=== PATIENT | female | born 1940 | race Caucasian/White ===

== ENCOUNTER 2019-08-18 19:08 | Emergency (ER) | payer MEDICARE ==
[~2019-08-18] VITALS: Ht 162.6 cm; Wt 61.2 kg
[2019-08-18] MEDS ORDERED: ESTROGEN (19:30)
[2019-08-18] MEDS ORDERED: PROTONIX40 M1 PO (19:31)
[2019-08-18] MEDS ORDERED: BENAZEPRIL HCL20 MG PO (19:32)
[2019-08-18] MEDS ORDERED: NORVASC 2.5 MG2.5 M1 (19:32)
[2019-08-18 21:03] LABS: ABSOLUTE EOSINOPHILS 0.1 thou/uL (0.0-0.7); ABSOLUTE LYMPHOCYTES 1.8 thou/uL (0.8-5.3); ABSOLUTE MONOCYTES 0.4 thou/uL (0.0-1.2); ABSOLUTE NEUTROPHILS 7.6 thou/uL (1.6-8.1); BASOPHILS 0.3 %; EOSINOPHILS 1.5 %; HEMATOCRIT 42.9 % (37.0-47.0); HEMOGLOBIN 14.6 gm/dL (12.0-15.0); MCH 29.4 pg (26.0-34.0); MCHC 34.1 g/dL (28.0-37.0); MCV 86.2 fL (80.0-100.0); MONOCYTES 4.4 %; MPV 7.3 fl. (7.2-11.1); NUCLEATED RBCS 0 /100WBC; PLATELET COUNT* 225 thou/uL (150-400); POLYS 75.8 %; RBC 4.97 mil/uL (4.20-5.00); RDW-CV 14.4 % (10.5-14.5); WBC 10.1 thou/uL (4.0-11.0)
[2019-08-18 21:14] LABS: CREATININE 0.7 mg/dL (0.6-1.3); POTASSIUM 3.9 mmol/L (3.5-5.1)
[2019-08-18 21:19] LABS: ALBUMIN 3.8 g/dL (3.4-5.0); TOTAL BILIRUBIN 0.4 mg/dL (<0.1-1.0)
[2019-08-18] MEDS ORDERED: TORADOL 10 MG T10 MG PO (21:32)
[2019-08-18] MEDS ORDERED: HYDROCODON-ACE1 EAC7 PO (21:32)
[2019-08-18 22:39] VITALS: BP 155/89
== END 2019-08-18 22:39 | disposition home or self-care (01) ==
LOC: M.ERS 19:08
PROVIDERS: Personal Emergency Response Attendant
DX: T78.49XA Other allergy, initial encounter (principal); T80.89XA Other complications following infusion, transfusion and therapeutic injection, initial encounter; I10 Essential (primary) hypertension; Z88.5 Allergy status to narcotic agent; Z91.041 Radiographic dye allergy status; Z88.0 Allergy status to penicillin; Z90.49 Acquired absence of other specified parts of digestive tract; Z90.710 Acquired absence of both cervix and uterus; X58.XXXA Exposure to other specified factors, initial encounter; Y84.9 Medical procedure, unspecified as the cause of abnormal reaction of the patient, or of later complication, without mention of misadventure at the time of the procedure; Y92.89 Other specified places as the place of occurrence of the external cause

== ENCOUNTER 2021-03-03 20:33 | Emergency (ER) | payer MEDICARE ==
[~2021-03-03] VITALS: Ht 162.6 cm; Wt 77.1 kg
[~2021-03-03 20:33] MED LIST: BENAZEPRIL HCL20 MG PO; ESTROGEN; HYDROCODON-ACE1 EAC7 PO; NORVASC 2.5 MG2.5 M1; PROTONIX40 M1 PO; TORADOL 10 MG T10 MG PO
[2021-03-03 21:31] LABS: ABSOLUTE EOSINOPHILS 0.2 thou/uL (0.0-0.7); ABSOLUTE LYMPHOCYTES 1.9 thou/uL (0.8-5.3); ABSOLUTE MONOCYTES 0.5 thou/uL (0.0-1.2); ABSOLUTE NEUTROPHILS 7.9 thou/uL (1.6-8.1); BASOPHILS 0.3 %; MCH 30.2 pg (26.0-34.0); MCHC 34.1 g/dL (28.0-37.0); MCV 88.7 fL (80.0-100.0); MONOCYTES 4.9 %; MPV 7.5 fl. (7.2-11.1); NUCLEATED RBCS 0 /100WBC; PLATELET COUNT* 201 thou/uL (150-400); POLYS 74.8 %; RBC 4.62 mil/uL (4.20-5.00); RDW-CV 14.2 % (10.5-14.5); WBC 10.5 thou/uL (4.0-11.0)
[2021-03-03 21:38] LABS: CALCIUM 8.7 mg/dL (8.5-10.1); CREATININE 0.6 mg/dL (0.6-1.3)
[2021-03-03 21:43] LABS: ALBUMIN 3.7 g/dL (3.4-5.0); TOTAL BILIRUBIN 0.4 mg/dL (<0.1-1.0); TOTAL PROTEIN 6.9 g/dL (6.4-8.2)
[2021-03-03 22:14] LABS: URINE BILIRUBIN NEGATIVE (Negative); URINE BLOOD NEGATIVE (Negative); URINE CLARITY CLEAR; URINE COLOR YELLOW; URINE GLUCOSE-RANDOM NEGATIVE (Negative); URINE KETONES NEGATIVE (Negative); URINE LEUKOCYTES-REFLEX NEGATIVE (Negative); URINE NITRITE-REFLEX NEGATIVE (Negative); URINE PROTEIN NEGATIVE (Negative); URINE UROBILINOGEN 0.2 E.U./dl (0.2-1.0)
[2021-03-03 22:57] VITALS: BP 168/71
--- NOTE | 2021-03-04 14:45 | EKG ---
[place] [address] ELECTROCARDIOGRAM REPORT Name: [facility]Y [id number] Admission: 03/03/21 Attend Phys: Discharge: 03/03/21 Date of : 40 Date of Service: 03/03/212047 Report #: [id number] THIS REPORT FOR: //name// [facility] ED Test Date: 2021-03-03 Test Time: 20:48:29 Pat Name: DIONNE RAMEY Department: Room: Gender: [employer]: [place] : 1940 Requested By: Brianda Monroe Order Number: [id number] Reading MD: Afshin Bland Measurements Intervals [place] Rate: 58 P: 67 NV: 176 QRS: -26 QRSD: 141 T: 46 QT: 454 QTc: 446 Interpretive Statements Sinus rhythm Atrial premature complex Probable left atrial enlargement Right bundle branch block Compared to ECG 05/08/2011 06:49:34 Atrial premature complex(es) now present Electronically Signed On 03-04-2021 14:45:18 CDT by Afshin Bland [email or web address] <ELECTRONICALLY SIGNED> By: Afshin Bland MD, [facility] 03/04/21 1445 47 47 Afshin Bland MD, [facility] /EPI
== END 2021-03-03 22:58 | disposition home or self-care (01) ==
LOC: M.ERS 20:33
PROVIDERS: Emergency Medicine
DX: S69.91XA Unspecified injury of right wrist, hand and finger(s), initial encounter (principal); T67.1XXA Heat syncope, initial encounter; I10 Essential (primary) hypertension; Z79.899 Other long term (current) drug therapy; Z88.5 Allergy status to narcotic agent; Z88.0 Allergy status to penicillin; Z91.041 Radiographic dye allergy status; W18.30XA Fall on same level, unspecified, initial encounter; Y93.89 Activity, other specified; Y92.89 Other specified places as the place of occurrence of the external cause; Y99.8 Other external cause status